=== PATIENT | female | born 1935 | race Caucasian/White ===

== ENCOUNTER → 2023-10-27 13:11 | Outpatient (REF) | payer OTHER, SELFPAY | LOC: RAD 13:11 | PROVIDERS: ATTENDING PHYSICIAN Internal Medicine Cardiovascular Disease; FAMILY PHYSICIAN Family Medicine | DX: I71.40 Abdominal aortic aneurysm, without rupture, unspecified (principal) | CPT/HCPCS: 71275; 74174; Q9967 ==

== ENCOUNTER 2024-12-24 11:17 | Emergency (ER) | payer OTHER, SELFPAY ==
[2024-12-24 11:19] VITALS: BP 175/75
[2024-12-24 12:01] VITALS: BP 167/58
--- NOTE | 2024-12-24 12:03 | ED.GENMED ---
History of Present Illness
General
Chief Complaint: Bowel Problem
Source: patient and spouse
Time Seen by Provider: 12/24/24 11:45
History of Present Illness
History of Present Illness:
This patient is a very pleasant 89-year-old female presents emergency department with a history of constipation for approximately a week. She was seen in urgent care center, had an x-ray that did not demonstrate obstruction, and was advised to take
MiraLAX every day. She states that she took the MiraLAX and it 'started to help', meaning that she began to have bowel movements. She has since stopped taking the MiraLAX but continues to have loose stool now described as 'black pudding' for the
last 5 days. She denies nonsteroidal use with the exception of a baby aspirin daily. She denies upper abdominal pain, nausea, vomiting, fever, chills, chest pain, dyspnea, back pain. She does note that she has abdominal bloating which she has had
for some time. She denies a history of GI bleeding in the past
Past History
Past History
ED Past Medical History: HTN, Hypercholesterolemia and Other (Multiple sclerosis, hearing impairment)
ED Past Surgical History: Other (Hernia)
Social History
Tobacco: Non-smoker
Alcohol: None
Drug: None
Personal:
Living: with family
Family History
Family History: Other (Noncontributory)
Phy Exam
Physical Exam
Physical Exam:
GENERAL: Alert , in no apparent distress
EYE: pupils equal and reactive
NECK: Supple, no significant adenopathy.
ENT: o/p clr, mmm.
CARDIAC: Regular rate and rhythm .
LUNGS: Clear breath sounds bilaterally, no acute respiratory distress, no wheezes/rales/rhonchi
ABDOMEN: Soft, without focal tenderness, no r/g, no cvat, hyperactive bowel sounds
NEUROLOGICAL: Alert and oriented, no focal neuro deficits
SKIN: Warm and dry, skin intact.
MUSCULOSKELETAL: No edema, well perfused.
PSYCH: Normal and appropriate interaction.
Rectal, mucus noted without stool, heme-negative, nontender, no active bleeding
Course
Orders/Labs/Results
Orders:
Orders
12/24/24 12:02
Cardiac Monitoring- Treatment ONCE
CR Obstruct Series W/pa Chest Urgent
Comment:
Reason For Exam: black stool, abd bloating
12/24/24 12:03
Electrocardiogram (*1) Stat
Reason for Study: Abdominal Pain
EKG- Treatment ONCE
IV Insert/Care/Rem.- Treatment PRN
Pantoprazole [Protonix IV] 40 mg IV NOW STA
12/24/24 12:11
Complete Blood Count/No Diff Urgent
Comprehensive Metabolic Panel Urgent
Lactic Acid Urgent
Lipase Urgent
Troponin I Urgent
Abnormal Lab Results
12/24/24
12:11
RBC 4.00 L 10^6/uL
(4.20-5.40)
Hgb 11.3 L g/dL
(12.0-16.0)
Hct 33.6 L %
(37.0-47.0)
Sodium 134 L mmol/L
(135-145)
Lactic Acid 0.6 L mmol/L
(0.7-2.0)
Total Protein 6.2 L g/dl
(6.3-8.2)
12/24/24 12:11
12/24/24 12:11
Vital Signs
Initial and Last Documented VS:
Initial Vital Signs
Temp Pulse Resp BP Pulse Ox
98.2 F 72 16 175/75 98
12/24/24 11:19 12/24/24 11:19 12/24/24 11:19 12/24/24 11:19 12/24/24 11:19
Last Documented Vital Signs
Temp Pulse Resp BP Pulse Ox
98.2 F 64 12 147/58 98
12/24/24 11:19 12/24/24 13:45 12/24/24 13:45 12/24/24 14:00 12/24/24 13:45
*Pulse Oximetry
SaO2: 98
Oxygen Mode of Delivery: Room air
Update Note
Update Note:
Patient presents to the Emergency Department with _black stool
Number and Complexity of Problems Addressed at the Encounter
� Chronic conditions affecting care:
� Acute Exacerbation and/or Progression of Chronic Illness:
� Differential Diagnosis includes: But not limited to upper GI bleed, lower GI bleed, medication effect, etc.
Amount and/or Complexity of Data to be Reviewed and Analyzed
� I performed an independent evaluation of and my interpretation is:
EKG: Read by me, normal sinus rhythm, normal rate, LAD, right bundle, no acute ischemia
CT:
Xrays: Abdominal x-ray NAD read by me
Laboratory Studies: Mild anemia
Other:
� Review of other/old records reveals:
� Clinical information was obtained by an independent historian: who is bedside
� Prescriptions/Medications Considered but not given:
� Further testing considered but not performed:
Risk of Complications and/or Morbidity or Mortality of Patient Management
� Social determinants of health affecting care:
� Discussion with other providers (PCP, Hospitalists, Consultants, etc):
� Escalation of care including admission/observation vs risk of discharge considered: Patient remained stable here. On exam, I was only able to obtain mucus via rectal exam which is heme-negative. Certainly history of black
stools is concerning however vitals and laboratory values are unremarkable. Discussed with patient and options to go home with close GI follow-up versus observation for continued bleeding. They strongly prefer staying in the hospital,
discussed with GI, discussed with hospitalist for admission/observation.
ED Attending Note
-
Portions of this chart may have been created with voice recognition software.� Occasional wrong word or��sound alike� substitutions may have occurred due to the inherent limitations of voice recognition software.
Discharge Plan
Departure
Patient Disposition: Home (Routine Discharge)
Date of Disposition: 12/24/24
Time of Disposition: 15:24
Admit to: Med/Surg
Condition: Fair
Discharge Problem:
Black stools
Instructions: Constipation, Adult (DC), Acute Diarrhea, BLOOD PRESSURE
Prescriptions:
No Action
hydrocodone-acetaminophen 1 TABLET tablet
1 tab PO Q4HPRN PRN (Reason: severe pain) Qty: 20 0RF
Referrals:
Jose Villanueva MD [Family Provider, Family Practice] - Follow up in 2-3 days
Activity Restrictions/Additional Instructions:
PLEASE HAVE YOUR DOCTOR CHECK YOUR BLOOD COUNT THIS WEEK. IF YOU DEVELOP BLEEDING, FEVER, CHILLS, DIZZINESS, CHEST PAIN, TROUBLE BREATHING, ABDOMINAL PAIN, OR OTHER WORRISOME SIGNS, GO TO THE ER IMMEDIATELY!
Interventions
Interventions:
*Risk Screen - Suicide Last Done: 12/24/24 11:21
*General Assessment Last Done: 12/24/24 12:18
*Neglect/Abuse Screening Last Done: 12/24/24 11:21
*ED- Fall Risk Assessment Last Done: 12/24/24 12:18
*ED COVID-19 Vaccine History Last Done: 12/24/24 12:18
QY-Qwrrtj-Dzthrkfyba Assessment Last Done: 12/24/24 12:19
Discharge Date and Time
Print Language: PANAMANIAN
[2024-12-24] MEDS: PROTONIX IV 40 MG IV (12:16)
[2024-12-24 12:18] VITALS: BMI 20.3
[2024-12-24 12:22] LABS: Hematocrit 33.6 % (37.0-47.0); Hemoglobin 11.3 g/dL (12.0-16.0); Mean Corp Hgb Conc. 33.6 g/dL (33.0-37.0); Mean Corpuscular Volume 84.0 fL (81.0-99.0); Platelet Count 218 10^3/uL (130-400); Red Cell Dist. Width 14.1 % (11.5-14.5)
[2024-12-24 12:41] LABS: ALT (SGPT) 29 U/L (0-35); AST (SGOT) 31 U/L (14-36); Albumin 4.3 g/dl (3.5-5.0); Alkaline Phosphatase 46 U/L (38-126); Blood Urea Nitrogen 12 mg/dl (7-17); Calcium 9.4 mg/dl (8.4-10.2); Carbon Dioxide 30 mmol/L (22-30); Chloride 99 mmol/L (98-107); Estimated Creatinine Clearance 47 ml/min; Glucose 98 mg/dl (70-99); Lipase 85 U/L (23-300); Potassium 4.2 mmol/L (3.5-5.1); Sodium 134 mmol/L (135-145); Total Protein 6.2 g/dl (6.3-8.2); eGFR > 60.00
[2024-12-24 12:48] LABS: Troponin I < 0.012 ng/ml
[2024-12-24 13:00] VITALS: BP 158/61
[2024-12-24 14:00] VITALS: BP 147/58
[2024-12-24 15:38] VITALS: BP 179/61
== END 2024-12-24 16:17 | disposition home or self-care (01) ==
LOC: EMR 11:17
PROVIDERS: EMERGENCY PHYSICIAN Emergency Medicine; FAMILY PHYSICIAN Family Medicine
DX: R19.5 Other fecal abnormalities (principal); I45.10 Unspecified right bundle-branch block; R14.0 Abdominal distension (gaseous); D64.9 Anemia, unspecified; I10 Essential (primary) hypertension; E78.00 Pure hypercholesterolemia, unspecified; G35 Multiple sclerosis; Z79.82 Long term (current) use of aspirin
CPT/HCPCS: 99285; 96374; 74022; 80053; 83605; 83690; 84484; 85027; 93005